=== PATIENT | female | born 1985 | race Caucasian/White ===

== ENCOUNTER 2016-11-24 22:50 | Emergency (ER) | payer OTHER ==
[~2016-11-24] VITALS: Ht 152.4 cm; Wt 77.1 kg
[2016-11-24 23:02] VITALS: BP 115/77
--- NOTE | 2016-11-24 23:46 | ED GI/GU/ABDOMINAL COMPLAINT ---
History of Present Illness General Chief Complaint: Abdominal Pain/Flank Pain Stated Complaint: PT IS HAVING ABDOMINAL PAIN Source: patient Exam Limitations: no limitations Vital Signs & Intake/Output Vital Signs & Intake/Output Vital Signs Date Time Temp Pulse Resp B/P Pulse O2 O2 Flow FiO2 Ox Delivery Rate 11/24 2302 98.4 84 18 115/77 98 Room Air ED Intake and Output 11/25 0000 11/24 1200 Intake Total Output Total Balance Patient 170 lb Weight Allergies Coded Allergies: No Known Allergies (11/24/16) Reconcile Medications Tramadol HCl (Ultram) 50 MG TABLET 1-2 TAB PO BIDP PRN PAIN TWENTY...[id number] Triage Note: RECEIVED 31 YO FEMALE WITH HX OF INTERSTITIAL CYSTITIS, C/O WORSENING RIGHT SIDED UPPER AND LOWER ABDOMINAL PAIN X 3 DAYS, NO C/O N/V/D. Triage Nurses Notes Reviewed? yes ? n Is pt currently ? No Onset: Gradual Duration: week(s):, waxing and waning Timing: recent history Quality/Severity: cramping Location: generalized abdomen Radiation: no radiation Activities at Onset: none Prior Abdominal Problems: similar symptoms Modifying Factors: Worsens With: palpation. Associated Symptoms: abdominal pain HPI: 31 yo woman h/o interstitial cystitis, day 4/7 of bactrim for uti, presents with diffuse abdominal pain, consistent with her prior episodes. She notes that she has had this pain for the past several months, "nothing makes it better." She has no nausea, vomiting, diarrhea, vaginal discharge. She notes cramping diffusely, increased gassiness. She has tried several medications without success. Past History Travel History Traveled to [place] past 21 day No Medical History Any Pertinent Medical History? see below for history Neurological: NONE EENT: NONE Cardiovascular: NONE Respiratory: NONE Gastrointestinal: NONE Hepatic: NONE Renal: INTERSTITIAL CYSTITIS Musculoskeletal: NONE Psychiatric: NONE Endocrine: NONE Blood Disorders: NONE Cancer(s): NONE Surgical History Surgical History: none Psychosocial History What is your primary language German Tobacco Use: Current Daily Use Daily Tobacco Use Amount/Type: => 5 Cigarettes daily Family History Hx Contributory? No Review of Systems Review of Systems Constitutional: Reports: no symptoms. EENTM: Reports: no symptoms. Respiratory: Reports: no symptoms. Cardiovascular: Reports: no symptoms. GI: Reports: no symptoms. Genitourinary: Reports: no symptoms. Musculoskeletal: Reports: no symptoms. Skin: Reports: no symptoms. Neurological/Psychological: Reports: no symptoms. Hematologic/Endocrine: Reports: no symptoms. Immunologic/Allergic: Reports: no symptoms. All Other Systems: Reviewed and Negative Physical Exam Physical Exam General Appearance: well developed/nourished, mild distress Head: atraumatic, normal appearance Eyes: Bilateral: normal appearance. Ears, Nose, Throat, Mouth: hearing grossly normal Neck: normal inspection, supple, full range of motion, normal alignment Respiratory: normal breath sounds, chest non-tender, no respiratory distress, quiet respiration Cardiovascular: regular rate/rhythm Gastrointestinal: normal bowel sounds, soft, diffuse tenderness in mid epiagastrum and right lower quadrant Back: normal inspection, normal range of motion Extremities: normal range of motion, evidence of injury Neurologic/Psych: no motor/sensory deficits, awake, alert, oriented x 3 Skin: intact, normal color, warm/dry Core Measures ACS in differential dx? No Severe Sepsis Present: No Septic Shock Present: No Progress Differential Diagnosis: appendicitis, biliary colic, cholecystitis, diverticulitis, gastritis, hepatitis, pancreatitis, SBO Plan of Care: Orders Procedure Date/time Status LIPASE 11/24 2309 Complete HEPATIC FUNCTION PANEL 11/24 2309 Complete CBC WITHOUT DIFFERENTIAL 11/24 2309 Complete BASIC METABOLIC PANEL 11/24 2309 Complete AMYLASE 11/24 2309 Complete URINE 11/24 2305 Complete URINALYSIS 11/24 2304 Complete Laboratory Tests 11/25/16 0056: Anion Gap 10, Estimated GFR 59 L, BUN/Creatinine Ratio 13.6, Glucose 93, Calcium 10.6 H, Total Bilirubin 0.3, Direct Bilirubin 0.1, AST 15, ALT 31, Alkaline Phosphatase 85, Total Protein 7.2, Albumin 4.4, Amylase 41, Lipase 68, CBC w Diff NO MAN DIFF REQ, RBC 4.42, MCV 90.9, MCH 31.0, RDW 13.4, MPV 8.3, Gran % 60.5, Lymphocytes % 31.3, Monocytes % 5.0, Eosinophils % 2.1, Basophils % 1.1, Absolute Granulocytes 6.2, Absolute Lymphocytes 3.2, Absolute Monocytes 0.5 , Absolute Eosinophils 0.2, Absolute Basophils 0.1, PUBS MCHC 34.1 11/24/162311: Urine Test NEGATIVE 04/12/17 2312: Urine Color YEL, Urine Clarity HAZY H, Urine pH 6.5, Ur Specific [place] 1.020, Urine Protein NEG, Urine Ketones NEG, Urine Nitrite NEG, Urine Bilirubin NEG, Urine Urobilinogen 0.2, Ur Leukocyte Esterase SMALL H, Ur Microscopic SEDIMENT EXAMINED, Urine RBC 1-3, Urine WBC RARE, Ur Epithelial Cells MANY H, Urine Bacteria MOD H, Urine Hemoglobin TRACE-INTACT, Urine Glucose NEG Diagnostic Imaging: Viewed by Me: CT Scan. Discussed w/RAD: CT Scan. Radiology Impression: ct scan, abd/pelvis... no acute changes... full report below. Initial ED EKG: none Comments: PATIENT: NATE GOLDSMITH PRESENT AGE: 31 PATIENT ACCOUNT NO: [id number] : 87 LOCATION: [facility] ORDERING PHYSICIAN: RODRI MYRICK MD SERVICE DATE: 11/25/16 EXAM TYPE: CAT - CT ABD & PELVIS W/O IV CONTRAS EXAMINATION: CT ABDOMEN AND PELVIS WITHOUT CONTRAST CLINICAL INFORMATION: Right lower quadrant pain. Diffuse abdominal pain. COMPARISON: None. TECHNIQUE: Contiguous axial thin section helical images of the abdomen and pelvis were performed without oral or IV contrast. The data set was reformatted in the coronal and sagittal planes and reviewed on an independent workstation. DLP: 408 mGy-cm. FINDINGS: There is an 8 mm macrolobulated noncalcified nodule within the lateral basal segment of the left lower lobe on image 91/704. The visualized lung bases are otherwise clear. The visualized portions of the heart are unremarkable. The liver is of normal size and attenuation without focal lesions nor intrahepatic biliary ductal dilation. A normal gallbladder is identified. There is no wall thickening or discernible pericholecystic fluid. The spleen, pancreas, adrenal glands are unremarkable. Both kidneys are of normal size and attenuation without hydronephrosis or nephrolithiasis. There is no abdominal free fluid. There are scattered nonpathologically enlarged mesenteric lymph nodes. There are a few sigmoid diverticula present. Otherwise, unremarkable unopacified loops of small and large bowel are identified. A normal appendix is identified. There is no pelvic free fluid. An IUD is in appropriate position. The urinary bladder is unremarkable. There is neither pelvic nor inguinal lymphadenopathy. Bone windows: Neither sclerotic nor lytic bone lesions are identified. IMPRESSION: There are a few nonpathologically enlarged mesenteric lymph nodes present. There is no significant adjacent fat stranding. This appearance is nonspecific, but consider mesenteritis. Otherwise, no significant evidence for acute abdominal or pelvic inflammatory or infectious processes. Specifically, a normal appendix is identified. Mild sigmoid diverticulosis without evidence of diverticulitis. DICTATED BY: BO CARRASQUILLO MD DATE/TIME DICTATED:11/25/16199 MANAGER MULTICULTURAL:NADIR DATE/TIME TRANSCRIBED:11/25/16199 CONFIDENTIAL, DO NOT COPY WITHOUT APPROPRIATE AUTHORIZATION. <Electronically signed in Other Vendor System> SIGNED BY: BO CARRASQUILLO MD 11/25/16211 Departure Departure Disposition: HOME OR SELF CARE Condition: Stable Clinical Impression Primary Impression: Abdominal pain Referrals: NEDA FAY,SARA Araujo (PCP/Family) Departure Forms: Customer Survey General Discharge Information Prescriptions: Current Visit Scripts Tramadol HCl (Ultram) 1-2 TAB PO BIDP PRN PAIN #20 TAB TWENTY...[id number] Comments 11/25/16, 2:48am... pt with benign labs/ct scan... sleeping comfortably in ED... pt referred to GI... pt also to see her urologist and PMD... close follow up advised.
[2016-11-25 01:05] LABS: ABSOLUTE BASOPHIL COUNT 0.1 /CUMM (0.0-0.2); ABSOLUTE EOSINOPHIL COUNT 0.2 /CUMM (0.0-0.7); ABSOLUTE GRANULOCYTE CT 6.2 /CUMM (1.4-6.5); ABSOLUTE LYMPH COUNT 3.2 /CUMM (1.2-3.4); ABSOLUTE MONOCYTE COUNT 0.5 /CUMM (0.10-0.60); BASOPHIL % 1.1 % (0.0-2.0); EOSINOPHIL % 2.1 % (0-5); GRANULOCYTE % 60.5 % (42.2-75.2); HEMATOCRIT 40.2 % (37-47); MEAN CORPUSCULAR HGB CONC 34.1 G/DL (33.0-37.0); MEAN CORPUSCULAR VOLUME 90.9 FL (81.0-99.0); MEAN PLATELET VOLUME 8.3 FL (7.4-10.4); PLATELET COUNT 262 /CUMM (130-400); RBC DISTRIBUTION WIDTH 13.4 % (11.5-14.5); RED BLOOD CELL CT 4.42 /CUMM (4.20-5.40); WHITE BLOOD CELL COUNT 10.3 /CUMM (4.8-10.8)
--- NOTE | 2016-11-25 02:12 | CT SCAN REPORT ---
EXAMINATION: CT ABDOMEN AND PELVIS WITHOUT CONTRAST CLINICAL INFORMATION: Right lower quadrant pain. Diffuse abdominal pain. COMPARISON: None. TECHNIQUE: Contiguous axial thin section helical images of the abdomen and pelvis were performed without oral or IV contrast. The data set was reformatted in the coronal and sagittal planes and reviewed on an independent workstation. DLP: 408 mGy-cm. FINDINGS: There is an 8 mm macrolobulated noncalcified nodule within the lateral basal segment of the left lower lobe on image 91/704. The visualized lung bases are otherwise clear. The visualized portions of the heart are unremarkable. The liver is of normal size and attenuation without focal lesions nor intrahepatic biliary ductal dilation. A normal gallbladder is identified. There is no wall thickening or discernible pericholecystic fluid. The spleen, pancreas, adrenal glands are unremarkable. Both kidneys are of normal size and attenuation without hydronephrosis or nephrolithiasis. There is no abdominal free fluid. There are scattered nonpathologically enlarged mesenteric lymph nodes. There are a few sigmoid diverticula present. Otherwise, unremarkable unopacified loops of small and large bowel are identified. A normal appendix is identified. There is no pelvic free fluid. An IUD is in appropriate position. The urinary bladder is unremarkable. There is neither pelvic nor inguinal lymphadenopathy. Bone windows: Neither sclerotic nor lytic bone lesions are identified. IMPRESSION: There are a few nonpathologically enlarged mesenteric lymph nodes present. There is no significant adjacent fat stranding. This appearance is nonspecific, but consider mesenteritis. Otherwise, no significant evidence for acute abdominal or pelvic inflammatory or infectious processes. Specifically, a normal appendix is identified. Mild sigmoid diverticulosis without evidence of diverticulitis.
[2016-11-25] MEDS ORDERED: ULTRAM50 M1 PO (02:47)
== END 2016-11-25 02:54 ==
LOC: ERH 22:50
PROVIDERS: Pediatrics
DX: R10.13 Epigastric pain (principal); R10.31 Right lower quadrant pain
CPT/HCPCS: 74176; 81001; 81025; 96372; J0500; J1885